=== PATIENT | female | born 1950 | race Caucasian/White ===

== ENCOUNTER 2020-02-09 08:22 | Emergency (ER) | payer MEDICARE ==
[~2020-02-09] VITALS: Ht 170.2 cm; Wt 50.0 kg
[2020-02-09 10:00] VITALS: BP 126/68
== END 2020-02-09 10:00 | disposition home or self-care (01) ==
LOC: ED 08:22
DX: M25.572 Pain in left ankle and joints of left foot (principal); W01.0XXA Fall on same level from slipping, tripping and stumbling without subsequent striking against object, initial encounter; Y92.009 Unspecified place in unspecified non-institutional (private) residence as the place of occurrence of the external cause

== ENCOUNTER 2021-09-02 17:56 | Emergency (ER) | payer MEDICARE | END 2021-09-02 19:16 | disposition left against medical advice (07) | LOC: ED 17:56 → LWOBS 19:15 → ED 19:15 | DX: Z91.19 Patient's noncompliance with other medical treatment and regimen (principal) ==

== ENCOUNTER 2023-08-24 16:19 | Emergency (ER) | payer MEDICARE | END 2023-08-24 17:13 | disposition left against medical advice (07) | LOC: ED 16:19 → LWOBS 17:13 | DX: Z53.21 Procedure and treatment not carried out due to patient leaving prior to being seen by health care provider (principal) ==

== ENCOUNTER 2023-08-25 07:19 | Emergency (ER) | payer MEDICARE ==
[~2023-08-25] VITALS: Ht 170.2 cm; Wt 57.8 kg
[2023-08-25 07:34] VITALS: BP 124/74
[2023-08-25 08:09] VITALS: BP 124/74
== END 2023-08-25 08:12 | disposition left against medical advice (07) ==
LOC: ED 07:19
DX: R07.89 Other chest pain (principal); R06.02 Shortness of breath; Z53.29 Procedure and treatment not carried out because of patient's decision for other reasons; E78.5 Hyperlipidemia, unspecified